=== PATIENT | male | born 1965 | race Caucasian/White ===

== ENCOUNTER 2016-06-04 14:38 | Emergency (ER) | payer MEDICAID, SELFPAY | END 2016-06-04 17:27 | disposition home or self-care (01) | LOC: ER 14:38 | DX: L03.116 Cellulitis of left lower limb (principal); L40.0 Psoriasis vulgaris; R21 Rash and other nonspecific skin eruption; F17.210 Nicotine dependence, cigarettes, uncomplicated | CPT/HCPCS: 96372 ==